=== PATIENT | female | born 1990 | race Caucasian/White ===

== ENCOUNTER 2017-09-27 15:23 | Emergency (ER) | payer OTHER ==
[2017-09-27 15:42] VITALS: BP 109/68
--- NOTE | 2017-09-27 16:02 | UC ---
UC General HPI - HPI Summary HPI Summary: Pt c/o tender "lump" left posterior labia. Pt denies risk of orSTD's has not been sexually active "for months" was last seen by PCP 1.5 months ago had STD testing, all negative, was treated for BV. Has concern for vaginal yeast infection or BV - History of Current Complaint Chief Complaint: UCGeneralIllness Stated Complaint: PERSONAL Time Seen by Provider: 09/27/17 15:45 Hx Obtained From: Patient Hx Last Menstrual Period: 09/18/17 Onset/Duration: Gradual Onset, Lasting Days, Still Present Timing: Constant Onset Severity: Mild Current Severity: Mild Pain Intensity: 0 - Allergy/Home Medications Allergies/Adverse Reactions: Allergies Allergy/AdvReac Type Severity Reaction Status Date / Time No Known Allergies Allergy Verified 09/27/17 15:41 Home Medications: Home Medications Minocycline (NF) 50 mg DAILY 09/27/17 [History Confirmed 09/27/17] PMH/Surg Hx/FS Hx/Imm Hx Previously Healthy: Yes - Surgical History Surgical History: None - Family History Known Family History: Positive: Cardiac Disease - Social History Occupation: Employed Full-time Alcohol Use: Occasionally Alcohol Amount: weekends Substance Use Type: None Smoking Status (MU): Never Smoked Tobacco Have You Smoked in the Last Year: No Review of Systems Constitutional: Negative Skin: Other - tender mass left labia Eyes: Negative ENT: Negative Respiratory: Negative Cardiovascular: Negative Genitourinary: Vaginal/Penile Discharge, Vaginal/Penile Tenderness - tender mass Motor: Negative Neurovascular: Negative Musculoskeletal: Negative Neurological: Negative Psychological: Negative Is Patient Immunocompromised?: No All Other Systems Reviewed And Are Negative: Yes Physical Exam Triage Information Reviewed: Yes Appearance: Well-Appearing Vital Signs: Initial Vital Signs Temp 97.9 F 09/27/17 15:33 Pulse 69 09/27/17 15:33 Resp 16 09/27/17 15:33 BP 109/68 09/27/17 15:33 Pulse Ox 100 09/27/17 15:33 Vital Signs Reviewed: Yes Eye Exam: Normal ENT Exam: Normal ENT: Positive: Hearing grossly normal Respiratory: Positive: No respiratory distress Abdominal Exam: Normal Abdomen Description: Positive: Nontender Pelvic Exam: Positive: Mass - left posterior labia, bartholin Musculoskeletal Exam: Normal Neurological Exam: Normal Psychological Exam: Normal Skin Exam: Other - pea size tender moveable mass left left bartholin Course/Dx - Differential Dx - Multi-Symptom Differential Diagnoses: Other - bartholin cyst Provider Diagnoses: bartholin cyst. possible BV. Possible vaginal yeast infection Discharge - Sign-Out/Discharge Documenting (check all that apply): Discharge/Admit/Transfer - Discharge Plan Condition: Stable Disposition: HOME Prescriptions: DOXYcycline CAP(*) [DOXYcycline 100MG CAP(*)] 100 mg PO Q12H #14 cap Fluconazole 100 MG TAB* [Diflucan 100 MG TAB*] 100 mg PO DAILY #3 tab Patient Education Materials: Bartholin Cyst (ED) Referrals: Susana Mullen PA [Primary Care Provider] - If Needed - Billing Disposition and Condition Condition: STABLE Disposition: HOME
== END 2017-09-27 16:14 | disposition home or self-care (01) ==
LOC: UCCORT 15:23
DX: N75.0 Cyst of Bartholin's gland (principal)
CPT/HCPCS: 87480; 87510; 87660; 99212; G0463

== ENCOUNTER 2018-07-20 16:17 | Emergency (ER) | payer OTHER ==
[2018-07-20 16:37] VITALS: BP 108/61
--- NOTE | 2018-07-20 16:55 | UC ---
Throat Pain/Nasal Ishan HPI - HPI Summary HPI Summary: Pt present with c/o PND, nasal congestion, sinus pressure and pain, cough, chest congestion and SOB with exertion X 8 days. - History of Current Complaint Chief Complaint: UCRespiratory Stated Complaint: COUGH/CONGESTION Time Seen by Provider: 07/20/18 16:47 Hx Obtained From: Patient Hx Last Menstrual Period: 07/09/18 ?: No Onset/Duration: Sudden Onset, Lasting Days, Still Present, Worse Since - onset Severity: Moderate Pain Intensity: 0 Cough: Nonproductive Associated Signs & Symptoms: Positive: Sinus Discomfort - Epiglottits Risk Factors Epiglottis Risk Factors: Negative - Allergies/Home Medications Allergies/Adverse Reactions: Allergies Allergy/AdvReac Type Severity Reaction Status Date / Time No Known Allergies Allergy Verified 07/20/18 16:34 Home Medications: Home Medications Fludrocortisone Acetate TAB* [Florinef TAB*] 0.1 mg PO DAILY 07/20/18 [History Confirmed 07/20/18] PMH/Surg Hx/FS Hx/Imm Hx Previously Healthy: Yes - Surgical History Surgical History: None - Family History Known Family History: Positive: Cardiac Disease - Social History Occupation: Employed Full-time Lives: With Family Alcohol Use: Rare Alcohol Amount: weekends Substance Use Type: None Smoking Status (MU): Never Smoked Tobacco Have You Smoked in the Last Year: No Review of Systems All Other Systems Reviewed And Are Negative: Yes Constitutional: Positive: Fatigue Skin: Positive: Negative Eyes: Positive: Negative ENT: Positive: Sinus Congestion, Sinus Pain/Tenderness Respiratory: Positive: Shortness Of Breath - with exertion, Cough Cardiovascular: Positive: Negative Gastrointestinal: Positive: Negative Genitourinary: Positive: Negative Motor: Positive: Negative Neurovascular: Positive: Negative Musculoskeletal: Positive: Myalgia Neurological: Positive: Negative Psychological: Positive: Negative Is Patient Immunocompromised?: No Physical Exam Triage Information Reviewed: Yes Appearance: Ill-Appearing Vital Signs: Initial Vital Signs Temp 97.4 F 07/20/18 16:34 Pulse 80 07/20/18 16:34 Resp 16 07/20/18 16:34 BP 108/61 07/20/18 16:34 Pulse Ox 100 07/20/18 16:34 Vital Signs Reviewed: Yes Eye Exam: Normal ENT: Positive: Nasal congestion, Sinus tenderness Dental Exam: Normal Neck exam: Normal Respiratory Exam: Normal Respiratory: Positive: Other: - upper respiratory congestion Cardiovascular Exam: Normal Musculoskeletal Exam: Normal Neurological Exam: Normal Psychological Exam: Normal Skin Exam: Normal Throat Pain/Nasal Course/Dx - Differential Dx/Diagnosis Differential Diagnosis/HQI/PQRI: Sinusitis, URI Provider Diagnosis: Sinusitis, Cough Discharge - Sign-Out/Discharge Documenting (check all that apply): Patient Departure All imaging exams completed and their final reports reviewed: No Studies - Discharge Plan Condition: Stable Disposition: HOME Prescriptions: Albuterol HFA INHALER* [Ventolin HFA Inhaler*] 1 - 2 puff INH Q4H PRN #1 mdi PRN Reason: Sob/Wheezing Amoxicillin PO (*) [Amoxicillin 875 MG (*)] 875 mg PO Q12H #20 tab Benzonatate CAP* [Tessalon 100 MG CAP*] 200 mg PO Q8H PRN #30 cap PRN Reason: Cough predniSONE TAB* [Deltasone 10 MG TAB*] 30 mg PO DAILY #12 tab Patient Education Materials: Sinusitis (ED), Acute Cough (ED) Referrals: Susana Mullen PA [Primary Care Provider] - If Needed - Billing Disposition and Condition Condition: STABLE Disposition: Home
== END 2018-07-20 17:07 | disposition home or self-care (01) ==
LOC: UCCORT 16:17
DX: J32.9 Chronic sinusitis, unspecified (principal); R05 Cough
CPT/HCPCS: 99212; G0463